=== PATIENT | male | born 1965 | race Caucasian/White ===

== ENCOUNTER → 2018-07-29 08:33 | Outpatient (CLI) | payer OTHER, SELFPAY ==
[2018-07-29 09:05] LABS: Add Manual Diff / Slide Review NO; Basophils Absolute Auto 0 /uL (0-100); Basophils Percent Auto 0.7 % (0-2); Eosinophils Absolute Auto 200 /uL (0-450); Eosinophils Percent Auto 3.6 % (2-4); Hematocrit 49.9 % (41-53); Hemoglobin 17.2 g/dL (13.5-17.5); Lymphocytes Absolute Auto 1300 /uL (1100-4500); Lymphocytes Percent Auto 32.2 % (25-40); Mean Corpuscular HGB Conc 34.4 % (30-36); Mean Corpuscular Hemoglobin 28.8 PG (26-34); Mean Corpuscular Volume 83.8 fL (80-100); Monocytes Absolute Auto 400 /uL (0-900); Monocytes Percent Auto 8.9 % (3-14); Neutrophils Absolute Auto 2300 /uL (1500-7000); Neutrophils Percent Auto 54.6 % (50-75); Platelet Count 156 X10^3/uL (150-400); Red Blood Cell Count 5.95 X10^6/uL (4.5-5.9); White Blood Cell Count 4.2 X10^3/uL (4.5-11.0)
[2018-07-29 09:10] LABS: Alanine Aminotransferase 43 IU/L (21-72); Albumin 4.4 g/dL (3.5-5.0); Albumin Globulin Ratio 1.6 (1.0-2.8); Alkaline Phosphatase 61 U/L (38-126); Aspartate Aminotransferase 33 IU/L (17-59); BUN Creatinine Ratio 17.5 (6-22); Bilirubin Total 0.5 mg/dL (0.2-1.3); Blood Urea Nitrogen 14 mg/dL (9-20); Calcium 9.1 mg/dL (8.4-10.2); Carbon Dioxide 25 mmol/L (22-32); Chloride 105 mmol/L (98-107); Cholesterol 178 mg/dL (140-199); Estimated Glomerular Filt Rate > 60.0 mL/min (>60); Globulin 2.8 g/dL (1.7-4.1); Glucose 106 mg/dL (70-100); HDL Cholesterol 35 mg/dL (40-60); HEMOLYSIS < 15 (0-50); LDL Cholesterol Calculated 102 mg/dL (<100); Potassium 4.2 mmol/L (3.4-5.1); Sodium 141 mmol/L (137-145); Total Protein 7.2 g/dL (6.3-8.2); Triglycerides 207 mg/dL (35-150)
[2018-07-29 09:40] LABS: Prostate Specific Antigen Scrn 2.56 ng/mL (0.1-4.0)
[2018-07-29 09:42] LABS: Thyroid Stimulating Hormone 1.83 uIU/mL (0.47-4.68)
== END ==
PROVIDERS: PCP Family Medicine; Visit Provider Family Medicine
DX: Z00.00 Encounter for general adult medical examination without abnormal findings (principal); Z13.220 Encounter for screening for lipoid disorders; Z13.29 Encounter for screening for other suspected endocrine disorder; S03.00XA Dislocation of jaw, unspecified side, initial encounter; S16.1XXA Strain of muscle, fascia and tendon at neck level, initial encounter; Z12.5 Encounter for screening for malignant neoplasm of prostate
CPT/HCPCS: 36415; 80053; 80061; 84443; 85025; G0103

== ENCOUNTER → 2019-01-30 11:41 | Outpatient (CLI) | payer OTHER, SELFPAY ==
--- NOTE | 2019-01-30 11:51 | DI.RAD.S_ITS ---
PROCEDURE: XR SHOULDER LT MIN 2V INDICATIONS: Evaluation TECHNIQUE: 3 views of the shoulder were acquired. COMPARISON: None. FINDINGS: Bones: No fractures or dislocations. No suspicious bony lesions. Visualized ribs appear intact. Mild left acromioclavicular and glenohumeral joint degeneration. Soft tissues: No suspicious soft tissue calcifications. IMPRESSION: Mild left shoulder joint degeneration. If the patient's pain or other symptoms persist, consider further evaluation with MRI Dictated by: Terrance Harris M.D. on 01/30/2019 at 13:38 Approved by: Terrance Harris M.D. on 01/30/2019 at 13:39
== END ==
PROVIDERS: PCP Family Medicine; Visit Provider Family Medicine
DX: M25.512 Pain in left shoulder (principal); M54.12 Radiculopathy, cervical region
CPT/HCPCS: 73030

== ENCOUNTER → 2019-02-18 13:27 | Outpatient (CLI) | payer OTHER, SELFPAY ==
--- NOTE | 2019-02-18 13:28 | DI.MRI.S_ITS ---
PROCEDURE: MR CERVICAL SPINE WO CON INDICATIONS: L shoulder pain, cervical radiculopathy TECHNIQUE: Noncontrast sagittal T1 spin echo and T2 fast spin echo, sagittal STIR, foraminal oblique sagittal T2 fast spin echo, and axial gradient echo or T2 fast spin echo through the cervical spine. COMPARISON: [facility], MR, C-SPINE WITHOUT CONTRAST, 11/29/2016, 16:25. FINDINGS: Image quality: Excellent. Alignment and Curvature: There is normal bony alignment. Bone Marrow: Marrow demonstrates normal overall signal. Spinal Cord: Visualized spinal cord has normal size and signal. No cerebellar tonsillar herniation. Paraspinous Soft Tissues: No paravertebral masses. Prevertebral soft tissues are normal in thickness. C2-C3: No canal stenosis. Bilateral facet hypertrophy. Left uncovertebral joint hypertrophy. Moderate bilateral foraminal narrowing compression on the bilateral C3 nerve root sleeves. C3-C4: Mild diffuse disc bulge. No canal stenosis. Mild bilateral facet hypertrophy. Bilateral uncovertebral joint hypertrophy. Moderate right foraminal narrowing and moderate to severe left foraminal narrowing with compression on the bilateral C4 nerve root sleeves. C4-C5: No central canal stenosis. Prominent bilateral facet hypertrophy. Left uncovertebral joint hypertrophy. Mild to moderate right foraminal narrowing. Moderate left foraminal narrowing with compression on the left C5 nerve root sleeve. C5-C6: No canal stenosis. Bilateral facet hypertrophy. Mild right foraminal narrowing and moderate left foraminal narrowing with compression on the left C6 nerve root sleeve. C6-C7: Mild diffuse posterior disc protrusion with mild resulting canal stenosis. Bilateral facet hypertrophy. Mild bilateral uncovertebral joint hypertrophy. Mild right foraminal narrowing. Moderate to severe left foraminal narrowing with compression on the left C7 nerve root sleeve. C7-T1: No canal stenosis. Bilateral uncovertebral joint hypertrophy. Mild bilateral foraminal narrowing. IMPRESSION: 1. Diffuse spondylitic change. 2. Mild diffuse posterior disc protrusion at C6-C7 results in mild canal stenosis. 3. Multilevel cervical facet arthropathy. 4. Multilevel foraminal narrowing as above. Dictated by: Pierre Patel M.D. on 02/18/2019 at 15:57 Approved by: Pierre Patel M.D. on 02/18/2019 at 16:06
--- NOTE | 2019-02-18 13:28 | DI.MRI.S_ITS ---
PROCEDURE: MR SHOULDER LT WO CON INDICATIONS: L shoulder pain, cervical radiculopathy TECHNIQUE: Noncontrast oblique coronal T2 fast spin echo with fat saturation, oblique sagittal T1 spin echo and T2 fast spin echo with fat saturation, axial T1 spin echo and T2 fast spin echo with fat saturation through the shoulder. COMPARISON: None. FINDINGS: Image quality: Excellent. Rotator cuff: There is tendinosis and moderate grade bursal surface partial thickness tear involving distal supraspinatus at its insertion the humeral head extending to musculotendinous junction. Tendinosis and low-grade bursal surface partial-thickness involving distal infraspinatus is also seen extending to the musculotendinous junction. Distal subscapularis tendinosis and low-grade intrasubstance partial thickness tear is seen. Sagittal images demonstrate mild supraspinatus muscle atrophy. Bones and bursae: No bone marrow contusions or fractures. Moderate acromioclavicular joint osteoarthritis and mild glenohumeral joint osteoarthritis is seen. Anterior osteophyte formation is noted in the acromioclavicular joint impressing on musculotendinous junction of supraspinatus. No pathologic subacromial-subdeltoid or subcoracoid bursal fluid is present. Capsule and soft tissues: In the absence of intra-articular contrast, there is suggestion of focal superior anterior labral tear at one to 2:00 position. The glenohumeral ligaments appear intact. The long head of the biceps tendon demonstrates normal location and morphology. The rotator interval appears normal, without fibrosis. The coracohumeral ligament is normal in thickness. IMPRESSION: 1. Moderate acromioclavicular joint osteoarthritis and mild glenohumeral joint osteoarthritis. 2. Tendinosis and moderate grade bursal surface partial-thickness tear involving distal supraspinatus. Tendinosis and low-grade bursal surface partial-thickness involving distal infraspinatus. Distal subscapularis tendinosis and low-grade intrasubstance partial thickness tear. Mild supraspinatus muscle atrophy. 3. Suggestion of focal superior anterior labral tear at one to 2:00 position. Dictated by: Lawson Tripp M.D. on 02/18/2019 at 15:51 Approved by: Lawson Tripp M.D. on 02/18/2019 at 15:55
== END ==
PROVIDERS: PCP Family Medicine; Visit Provider Family Medicine
DX: M25.512 Pain in left shoulder (principal); M19.012 Primary osteoarthritis, left shoulder; M75.112 Incomplete rotator cuff tear or rupture of left shoulder, not specified as traumatic; M50.123 Cervical disc disorder at C6-C7 level with radiculopathy; M48.02 Spinal stenosis, cervical region; M47.22 Other spondylosis with radiculopathy, cervical region
CPT/HCPCS: 72141; 73221

== ENCOUNTER → 2020-01-21 10:11 | Outpatient (CLI) | payer OTHER, SELFPAY ==
--- NOTE | 2020-01-21 10:16 | DI.RAD.S_ITS ---
PROCEDURE: XR CERVICAL SPINE 4V OR 5V INDICATIONS: cervical radiculopathy TECHNIQUE: 5 views of the cervical spine acquired. COMPARISON: MRI cervical spine, 02/18/2019. FINDINGS: Bones: No fractures or dislocations to the C7 level. There is mild degenerative disease throughout the cervical spine. Mild to moderate facet arthropathy at C2-C3, C3-C4 and C4-C5 bilaterally. Oblique images demonstrate moderate bony foraminal stenoses severe at C2-C3 and C3-C4 bilaterally. Soft tissues: No prevertebral soft tissue swelling. IMPRESSION: 1. Degenerative disc and facet disease in cervical spine. 2. Moderate foraminal stenosis at C2-C3 and C3-C4 bilaterally. Dictated by: Quincy Riggins M.D. on 01/21/2020 at 11:03 Approved by: Quincy Riggins M.D. on 01/21/2020 at 11:07
== END ==
PROVIDERS: PCP Family Medicine; Referring Provider Family Medicine; Visit Provider Physical Medicine & Rehabilitation
DX: M50.11 Cervical disc disorder with radiculopathy, high cervical region (principal); M48.02 Spinal stenosis, cervical region; M47.22 Other spondylosis with radiculopathy, cervical region; M75.40 Impingement syndrome of unspecified shoulder
CPT/HCPCS: 72050; J0702; J2250; J3010

== ENCOUNTER → 2020-02-17 08:43 | Outpatient (CLI) | payer OTHER, SELFPAY ==
[2020-02-17 09:23] LABS: Add Manual Diff / Slide Review NO; Basophils Absolute Auto 0 /uL (0-100); Basophils Percent Auto 0.6 % (0-2); Eosinophils Absolute Auto 100 /uL (0-450); Hematocrit 51.1 % (41-53); Hemoglobin 17.8 g/dL (13.5-17.5); Lymphocytes Absolute Auto 1200 /uL (1100-4500); Lymphocytes Percent Auto 29.7 % (25-40); Mean Corpuscular HGB Conc 34.8 % (30-36); Mean Corpuscular Hemoglobin 29.3 PG (26-34); Mean Corpuscular Volume 84.1 fL (80-100); Monocytes Absolute Auto 400 /uL (0-900); Neutrophils Absolute Auto 2300 /uL (1500-7000); Neutrophils Percent Auto 57.7 % (50-75); Platelet Count 152 X10^3/uL (150-400); Red Blood Cell Count 6.07 X10^6/uL (4.5-5.9); Red Cell Distribution Width 12.7 % (11.6-14.8); White Blood Cell Count 3.9 X10^3/uL (4.5-11.0)
[2020-02-17 09:37] LABS: Hemoglobin A1C% w Est Avg Glu 5.3 % (4.0-6.0)
[2020-02-17 09:38] LABS: Alanine Aminotransferase 33 IU/L (<50); Albumin 4.5 g/dL (3.5-5.0); Albumin Globulin Ratio 1.7 (1.0-2.8); Alkaline Phosphatase 62 U/L (38-126); Aspartate Aminotransferase 27 IU/L (17-59); BUN Creatinine Ratio 14.9 (6-22); Bilirubin Total 0.9 mg/dL (0.2-1.3); Blood Urea Nitrogen 13 mg/dL (9-20); Calcium 9.7 mg/dL (8.4-10.2); Carbon Dioxide 30 mmol/L (22-32); Chloride 104 mmol/L (98-107); Cholesterol 203 mg/dL (140-199); Estimated Glomerular Filt Rate > 60.0 mL/min (>60); Globulin 2.7 g/dL (1.7-4.1); Glucose 96 mg/dL (70-100); HDL Cholesterol 40 mg/dL (40-60); HEMOLYSIS < 15 (0-50); LDL Cholesterol Calculated 132 mg/dL (<100); Potassium 4.6 mmol/L (3.4-5.1); Sodium 138 mmol/L (137-145); Total Protein 7.2 g/dL (6.3-8.2); Triglycerides 153 mg/dL (35-150)
[2020-02-17 10:04] LABS: Prostate Specific Antigen Scrn 1.33 ng/mL (0.1-4.0)
[2020-02-17 10:05] LABS: Thyroid Stimulating Hormone 1.87 uIU/mL (0.47-4.68)
[2020-02-18 09:41] LABS: SARS CoV19 IgG Negative (Negative)
== END ==
PROVIDERS: PCP Family Medicine; Referring Provider Family Medicine; Visit Provider Family Medicine
DX: F41.8 Other specified anxiety disorders (principal); Z12.5 Encounter for screening for malignant neoplasm of prostate; Z11.59 Encounter for screening for other viral diseases
CPT/HCPCS: 36415; 80053; 80061; 83036; 84443; 85025; 86769; G0103

== ENCOUNTER → 2020-02-27 08:22 | Outpatient (CLI) | payer OTHER, SELFPAY ==
[2020-02-28 16:05] LABS: COVID19 Sendout Not Detected (Not Detect)
== END ==
PROVIDERS: PCP Family Medicine; Visit Provider Physician Assistant
DX: Z11.59 Encounter for screening for other viral diseases (principal)
CPT/HCPCS: 87635

== ENCOUNTER 2020-03-01 08:51 | Outpatient (CLI) | payer OTHER, SELFPAY ==
--- NOTE | 2020-03-01 08:53 | DI.RAD.S_ITS ---
PROCEDURE: PAIN C/T INTERLAMINAR INJECT INDICATIONS: SPINAL STENOSIS COMPARISON: [facility], CR, XR CERVICAL SPINE 4V OR 5V, 01/21/2020, 10:14. FINDINGS: Fluoroscopic spot filming was performed to verify placement of a spinal needle on the right at the C6-C7 level, as labeled on the films. Appropriate location(s) of the needle tip(s) was confirmed by injection of iodinated contrast. IMPRESSION: Intraprocedural examination within normal limits. Dictated by: Trell Goddard M.D. on 03/01/2020 at 10:59 Approved by: Trell Goddard M.D. on 03/01/2020 at 11:00
[2020-03-01 09:13] VITALS: BP 139/89; PULSE 75; RESP 16; TEMP 36.3; O2SAT 95
[2020-03-01] MEDS: fentaNYL 100 MCG/2 ML INJ 50 MCG IV (09:47)
[2020-03-01] MEDS: MIDAZOLAM 5 MG/5 ML VIAL IV (09:47)
--- NOTE | 2020-03-01 10:08 | P.PCN_ITS ---
Date/Time/Diagnoses Date of procedure: 03/01/20 Time of procedure: 10:08 Pre-procedure diagnosis: 1. CERVICAL STENOSIS, 2. CERVICAL HNP WITH UPPER EXTREMITY RADICULAR FEATURES Post-procedure diagnosis: same Procedure Notes Procedure: 1. FLUORSCOPICALLY GUIDED CONTRAST CONTROLLED INTERLAMINAR EPIDURAL STEROID INJECTION - C6/7 TL JUAN M Indications: Octavio is referred by Dr. Lopez for treatment of Cervical HNP with Upper Extremity Paresthesias. Physician: Stone Boggs Total Fluoroscopy time (seconds): 21 Total sedation minutes: 15 Complications: none Procedure in detail & Post-procedure care: FINDINGS Cervical Stenosis due to disc deterioration and nerve root irritation and nerve root irritation DESCRIPTION OF PROCEDURE Fluoroscopically guided, contrast-controlled C6/7 translaminar epidural steroid injection with conscious sedation. Following review of allergy and review of potential side effects and complications, including, but not necessarily limited to, infection, allergic reaction, local tissue breakdown, temporary as well as permanent nerve injury, stroke, paralysis, and possible , the patient indicated that patient understood and agreed to proceed. An informed consent document was signed by the patient, witnessed by a nurse, and placed in the patient's chart. Additionally, other treatment options including modalities, medications, and physical therapy were reviewed with the patient. After review of previous anaesthesic history and IV conscious sedation the patient was deemed safe to proceed with today?s procedure with IV conscious sedation as ASA class II designation. Safety time-out was performed to confirm patient ID, procedure to be performed and site of procedure. IV sedation was accomplished with a combination of 3mg of Versed and 50mcg of Fentanyl administered by the RN after DO order, titrated to patient comfort during the course of the procedure while the patient remained responsive to all verbal commands. In the prone position, following sterile prep and drape of the cervical region, the C6/7 translaminar space was identified fluoroscopically. The skin was anesthetized via a 25-gauge 1.5-inch needle with 1% lidocaine solution. At this point, a 25-gauge, 2.5-inch short bevel spinal needle was atraumatically introduced and advanced under fluoroscopic guidance into epidural space at the C6/7 translaminar space. Depth was confirmed on lateral view. Radiological data, including multiple fluoroscopic views of the cervical spine, reveal a spinal needle at the C6/7 translaminar space. Lateral views then show placement of the needle in the epidural space. Subsequent views show contrast material flowing superiorly and inferiorly in the epidural space. DSA fluoroscopy with live contrast injection, once again, confirmed no vascular or intrathecal uptake. At this point, using loss of resistance technique with saline and air, the epidural space was entered. Following negative aspiration, injection of meron roximately 1.5 cc of [id number]-[id number] with live fluoroscopy in the AP view confirmed epidural flow in the epidural space without vascular or intrathecal uptake observed. Subsequently, a test dose of 1 cc of 1% lidocaine solution was injected and patient was observed for two minutes without signs or symptoms of complications, including abdominal pain, shortness of breath, bilateral upper or lower extremity weakness, nausea and vomiting, prior to steroid injection. At this point, 2cc or 20mg of dexamethasone was then injected without incident. The patient tolerated the procedure well without signs or symptoms of complications prior to being transferred to the recovery area for further monitoring, The patient was then transferred to the recovery area where they were observed for an appropriate period of time after the injection. The patient reported a VAS score of 6 prior to the procedure and a post-procedure VAS of 0. POST OP INSTRUCTIONS The patient was provided a Pain Log to continue to record their response to the target-specific procedure prior to follow-up visit with the referring provider. Additionally, specific post-injection care instructions and a contact number to our office were provided if concerns arise regarding possible complications associated with the procedure are suspected.
[2020-03-01 10:11] VITALS: BP 114/85; PULSE 78; RESP 16; O2SAT 97
[2020-03-01 10:15] VITALS: BP 138/87; PULSE 76; RESP 24; O2SAT 96
[2020-03-01 10:20] VITALS: BP 130/81; PULSE 75; RESP 12; O2SAT 96
== END 2020-03-01 10:27 | disposition home or self-care (01) ==
LOC: RAD 08:52
PROVIDERS: PCP Family Medicine; Referring Provider Physical Medicine & Rehabilitation; Visit Provider Physical Medicine & Rehabilitation
DX: M48.02 Spinal stenosis, cervical region (principal); M50.123 Cervical disc disorder at C6-C7 level with radiculopathy
CPT/HCPCS: 62321; 99152; J1100; J2250; J3010

== ENCOUNTER → 2020-03-07 11:31 | Outpatient (CLI) | payer OTHER, SELFPAY ==
--- NOTE | 2020-03-07 11:32 | DI.MRI.S_ITS ---
PROCEDURE: MR CERVICAL SPINE WO CON INDICATIONS: Progressive neck pain w radiculopathy TECHNIQUE: Noncontrast sagittal T1 spin echo and T2 fast spin echo, sagittal STIR, foraminal oblique sagittal T2 fast spin echo, and axial gradient echo or T2 fast spin echo through the cervical spine. COMPARISON: None. FINDINGS: Image quality: Excellent. Alignment and Curvature: Normal cervical spine vertebral body height and alignment. Normal configuration of the craniocervical junction. Bone Marrow: No suspicious focal marrow signal abnormality or bone marrow edema. Mild degenerative endplate changes are present from C3-C4 through C6-C7. Spinal Cord: Normal morphology and signal intensity of the cervical cord. There is no syrinx. Regional Soft Tissues: Prevertebral and paraspinous soft tissues are within normal limits. C2-C3: No spinal canal stenosis. Facet and uncovertebral hypertrophy contribute to mild left greater than right neural foraminal stenosis. C3-C4: Posterior disc osteophyte complex flattens the ventral thecal sac without mass effect upon the cord. Facet and uncovertebral hypertrophy contribute to moderate left greater than right neural foraminal stenosis. C4-C5: Posterior disc osteophyte complex flattens the ventral thecal sac without mass effect upon the cord. Facet and uncovertebral hypertrophy contribute to moderate right and mild left neural foraminal stenosis. C5-C6: Posterior disc osteophyte complex flattens the ventral thecal sac without mass effect upon the cord. Facet and uncovertebral hypertrophy contribute to mild bilateral neural foraminal stenosis. C6-C7: Posterior disc osteophyte complex flattens the ventral thecal sac without mass effect upon the cord. Facet and uncovertebral hypertrophy contribute to mild bilateral neural foraminal stenosis. C7-T1: No spinal canal or neural foraminal stenosis. IMPRESSION: Multilevel multifactorial degenerative changes. Dictated by: Cameron Franz M.D. on 03/07/2020 at 12:22 Approved by: Cameron Franz M.D. on 03/07/2020 at 12:26
== END ==
PROVIDERS: PCP Family Medicine; Referring Provider Family Medicine; Visit Provider Family Medicine
DX: M47.22 Other spondylosis with radiculopathy, cervical region (principal); M43.06 Spondylolysis, lumbar region; M54.2 Cervicalgia
CPT/HCPCS: 72141

== ENCOUNTER → 2020-03-11 10:31 | Outpatient (CLI) | payer OTHER, SELFPAY ==
--- NOTE | 2020-03-11 10:33 | DI.RAD.S_ITS ---
PROCEDURE: XR THORACIC SPINE 3V INDICATIONS: low back pain TECHNIQUE: 3 views of the thoracic spine were acquired. COMPARISON: None. FINDINGS: Bones: No fracture. Diffuse discogenic changes. Mild lateral curvature of the visualized spine. Soft tissues: No paravertebral stripe thickening. IMPRESSION: Multilevel degenerative endplate sclerosis and spurring. No fracture. Dictated by: Terrance Harris M.D. on 03/11/2020 at 14:54 Approved by: Terracne Harris M.D. on 03/11/2020 at 14:55
--- NOTE | 2020-03-11 10:33 | DI.RAD.S_ITS ---
PROCEDURE: XR LUMBAR SPINE 2-3V INDICATIONS: low back pain TECHNIQUE: 3 views of the lumbar spine were acquired. COMPARISON: None. FINDINGS: Bones: No fracture. Multilevel degenerative endplate sclerosis and spurring. Diffuse facet arthropathy. Severe narrowing of the L5-S1 disc space. Straightening of the normal lordotic curvature. Mild narrowing of the L1-L2 disc space. Soft tissues: Overlying bowel gas pattern is normal. No suspicious soft tissue calcifications. IMPRESSION: Multilevel lumbar spondylosis most pronounced at L5-S1. Diffuse facet arthropathy Dictated by: Terrance Harris M.D. on 03/11/2020 at 14:53 Approved by: Terrance Harris M.D. on 03/11/2020 at 14:54
== END ==
PROVIDERS: PCP Family Medicine; Referring Provider Family Medicine; Visit Provider Family Medicine
DX: M54.5 Low back pain (principal); M47.817 Spondylosis without myelopathy or radiculopathy, lumbosacral region; M43.06 Spondylolysis, lumbar region; Z87.828 Personal history of other (healed) physical injury and trauma
CPT/HCPCS: 72072; 72100

== ENCOUNTER 2020-03-17 13:05 | Outpatient (CLI) | payer OTHER, SELFPAY | END 2020-03-17 15:10 | disposition home or self-care (01) | LOC: PHYS 13:06 | PROVIDERS: PCP Family Medicine; Referring Provider Physical Medicine & Rehabilitation; Visit Provider Physical Medicine & Rehabilitation | DX: M54.12 Radiculopathy, cervical region (principal) | CPT/HCPCS: 95886; 95911 ==

== ENCOUNTER → 2020-03-19 07:49 | Outpatient (CLI) | payer OTHER, SELFPAY ==
--- NOTE | 2020-03-19 07:50 | DI.MRI.S_ITS ---
PROCEDURE: MR LUMBAR SPINE WO CON INDICATIONS: Progressive neck pain w radiculopathy TECHNIQUE: Noncontrast sagittal T1 spin echo and T2 fast echo, sagittal STIR, axial T1 and T2 fast spin echo through the lumbar spine. In cases with scoliosis, additional coronal T2 fast spin echo may be performed. COMPARISON: [facility], CR, XR LUMBAR SPINE 2-3V, 03/11/2020, 10:28. FINDINGS: Image quality: Excellent. Alignment and Curvature: There is trace retrolisthesis L4 on L5, L5 on S1. Bone Marrow: Marrow is of normal overall signal. Minimal reactive endplate changes are present at L4-5, L5-S1. No acute vertebral body compression fractures. Spinal Cord: Conus medullaris terminates at the L1 level. Visualized cord demonstrates normal signal and size. Paraspinous Soft Tissues: No paravertebral masses. Discs: Severe desiccation is present L5-S1, mild to moderate L4-5, minimal to mild throughout the remainder of the lumbar spine. L1-L2: Minimal disc bulge without spinal stenosis. Minimal to mild left foraminal narrowing. Facet and ligamentum flavum hypertrophy are present. Minimal epidural lipomatosis. L2-L3: Mild disc bulge without spinal stenosis or foraminal narrowing. Minimal epidural lipomatosis. Mild facet and ligamentum flavum hypertrophy. L3-L4: Mild disc bulge without spinal stenosis. [id number] left and minimal right foraminal narrowing with facet and ligamentum flavum hypertrophy. Minimal epidural lipomatosis. L4-L5: Mild disc bulge with minimal canal narrowing. No foraminal narrowing. Facet and ligamentum flavum hypertrophy are present. Minimal epidural lipomatosis. L5-S1: Mild disc bulge without spinal stenosis. Moderate to severe bilateral foraminal narrowing with facet hypertrophy. IMPRESSION: 1. Early degenerative changes most notable L5-S1 demonstrating moderate to severe bilateral foraminal narrowing secondary to facet arthropathy. Dictated by: Yareli Up M.D. on 03/21/2020 at 8:11 Approved by: Yareli Up M.D. on 03/21/2020 at 8:16
--- NOTE | 2020-03-19 07:50 | DI.MRI.S_ITS ---
PROCEDURE: MR SHOULDER RT WO CON INDICATIONS: A progressive localized pain and and impairment with ROM, wo TECHNIQUE: Noncontrast oblique coronal T2 fast spin echo with fat saturation, oblique sagittal T1 spin echo and T2 fast spin echo with fat saturation, axial T1 spin echo and T2 fast spin echo with fat saturation through the shoulder. COMPARISON: [facility], MR, MR SHOULDER LT WO CON, 02/18/2019, 14:31. FINDINGS: Image quality: Excellent. Rotator cuff: Supraspinatus tendinopathy, with low-grade bursal and articular surface fraying. No full-thickness defect is seen. There is interstitial tearing/intrasubstance ganglion cyst formation. Infraspinatus tendon appears intact. Teres minor intact. Subscapularis tendinopathy with thickening and ill-defined intrasubstance signal change, including interstitial tearing/ganglion cyst formation at the musculotendinous junction for example image 13/5. Mild fatty infiltration of the infraspinatus. Bones and bursae: No bone marrow contusions or fractures. Mild acromioclavicular joint degeneration. Acromion demonstrates conventional anatomy, without an os acromiale. Mild subacromial-subdeltoid bursitis. Capsule and soft tissues: Labrum: Ill-defined frayed appearance of the posterior labrum. There is adjacent glenoid rim sclerosis and spurring Remainder of the labrum appears grossly intact Long head of the biceps tendon intact. The rotator interval appears normal, without fibrosis. Coracohumeral ligament intact. IMPRESSION: Supraspinatus tendinopathy with low-grade bursal and articular surface fraying. Subscapularis tendinopathy with prominent intrasubstance signal change and thickening, with interstitial tearing and ganglion cyst formation as above. Ill-defined chronic tear and/or advanced degeneration of the posterior labrum. Dictated by: Terrance Harris M.D. on 03/21/2020 at 9:01 Approved by: Terrance Harris M.D. on 03/21/2020 at 9:17
== END ==
PROVIDERS: PCP Family Medicine; Referring Provider Family Medicine; Visit Provider Family Medicine
DX: M43.06 Spondylolysis, lumbar region (principal); M47.817 Spondylosis without myelopathy or radiculopathy, lumbosacral region; M75.40 Impingement syndrome of unspecified shoulder; M25.511 Pain in right shoulder; M75.51 Bursitis of right shoulder; M19.011 Primary osteoarthritis, right shoulder; M54.12 Radiculopathy, cervical region; M50.223 Other cervical disc displacement at C6-C7 level; Z98.890 Other specified postprocedural states
CPT/HCPCS: 72148; 73221

== ENCOUNTER → 2021-07-20 15:33 | Outpatient (CLI) | payer OTHER, SELFPAY ==
--- NOTE | 2021-07-20 | DI.MRI.S_ITS ---
PROCEDURE: MR BRAIN (IAC) WWO CON INDICATIONS: bilateral hearing loss with tinnitus TECHNIQUE: Noncontrast sagittal T1 spin echo, axial FLAIR, axial gradient echo, axial diffusion and ADC through the brain. Axial thin-slice 3D CISS, coronal TruFISP, axial T1 spin echo with fat saturation through the internal auditory canals. After the administration of contrast, thin slice axial and coronal T1 spin echo with fat saturation through the internal auditory canals, and axial T1 spin echo with fat saturation through the brain. COMPARISON: None. FINDINGS: Image quality: Excellent. Cerebellopontine angles: No cerebellopontine angle masses. Inner ear structures appear normally formed. No suspicious enhancement in the internal auditory canal or along the course of the 7th cranial nerve. CSF spaces: Ventricles are normal in size and shape. No extra-axial fluid collections. Basal cisterns are patent. Brain: No intracranial bleeds or mass effects. Gardner-white matter interface is intact. No abnormal intracranial enhancement. Diffusion weighted images demonstrate no acute ischemic insults. Brainstem appears normal. Normal intravascular flow voids are present. Skull and face: Calvarial marrow signal is normal. Orbits appear normal. Sinuses: Sinuses and mastoids are clear. IMPRESSION: 1. Negative evaluation of the internal auditory canals. 2. No acute intracranial abnormality. No recent infarct. Dictated by: Leo Devi M.D. on 07/20/2021 at 16:30 Approved by: Leo Devi M.D. on 07/20/2021 at 16:31
== END ==
PROVIDERS: PCP Family Medicine; Referring Provider Physician Assistant Medical; Visit Provider Physician Assistant Medical
DX: H91.93 Unspecified hearing loss, bilateral (principal); H93.13 Tinnitus, bilateral
CPT/HCPCS: 70553